=== PATIENT | female | born 1985 | race Hispanic/Latino ===

== ENCOUNTER 2017-04-26 18:58 | Emergency (ER) | payer OTHER ==
[2017-04-26 19:08] VITALS: BP 139/80; PULSE 118; RESP 16; TEMP 97.6; O2SAT 99
[2017-04-26] MEDS ORDERED: Lidocaine 1% Inj (20ml) IJ STA (19:10)
[2017-04-26] MEDS ORDERED: Cellulose Hemostat 2X3 Sheet TP ONE (19:15)
[2017-04-26] MEDS ORDERED: Lidocaine 1% Inj (20ml) ONE (19:32)
--- NOTE | 2017-04-26 19:37 | ED PDOC ---
Upper Extremity Pain/Injury Time Seen by Provider: 04/26/17 19:10 Chief Complaint (Nursing): Abnormal Skin Integrity Chief Complaint (Provider): Left index finger laceration History/Exam Limitations: no limitations Onset/Duration Of Symptoms: Mins Current Symptoms Are (Timing): Still Present Additional Complaint(s): Patient is a 31 y/o female who presents to the ED for skin avulsion on her left index finger due to injury. Patient reports she sustained the injury while cutting butter just prior to arrival. She reports numbness to the region of avulsed skin, but denies any numbness, weakness, or limited range of motion to other fingers. Patient states her tetanus vaccination is up to date. Past Medical History Reviewed: Historical Data, Nursing Documentation, Vital Signs Vital Signs: Last Vital Signs Temp 97.6 F 04/26/17 19:06 Pulse 118 H 04/26/17 19:06 Resp 16 04/26/17 19:06 BP 139/80 04/26/17 19:06 Pulse Ox 99 04/26/17 19:06 - Medical History PMH: No Chronic Diseases - Surgical History Other surgeries: Ganglion cyst removal, left hand - Family History Family History: States: No Known Family Hx - Social History Current smoker - smoking cessation education provided: Yes (2 cigarettes daily) Alcohol: Social (vodka) - Home Medications Home Medications: Ambulatory Orders Medication Instructions Recorded Cephalexin [cephalexin] 500 mg PO BID #20 cap 04/26/17 - Allergies Allergies/Adverse Reactions: Allergies Allergy/AdvReac Type Severity Reaction Status Date / Time No Known Allergies Allergy Verified 04/26/17 19:06 Review of Systems Skin: Positive for: Other (Skin avulsion to index finger of left hand) Neurological: Negative for: Weakness, Numbness Physical Exam - Reviewed Nursing Documentation Reviewed: Yes Vital Signs Reviewed: Yes - Physical Exam Appears: Positive for: No Acute Distress Head Exam: Positive for: ATRAUMATIC Extremity: Positive for: Other (Left index finger skin avulsion: 1 inch, partial nail bed involvement, acrylic nail very minimal bleeding . FROM of digit. ) Neurologic/Psych: Positive for: Alert - ECG O2 Sat by Pulse Oximetry: 99 (RA) Pulse Ox Interpretation: Normal Medical Decision Making Medical Decision Makin:10 Initial Plan: --Lidocaine 1% 10 ml IJ --Cellulose Hemostat 1 she TP 19:35 3 CCs of lidocaine given without epi good wound pressure applied, no active bleeding, telfa dressing applies advised not to wet wound for at least 2-3days and not to remove surgicel for a couple of days with f/u with pmd. Scribe Attestation: Documented by Bob Carlos, acting as a scribe for Asia Pulido PA-C Provider Scribe Attestation: All medical record entries made by the Scribe were at my direction and personally dictated by me. I have reviewed the chart and agree that the record accurately reflects my personal performance of the history, physical exam, medical decision making, and the department course for this patient. I have also personally directed, reviewed, and agree with the discharge instructions and disposition. Disposition - Clinical Impression Clinical Impression: Avulsion, skin - Patient ED Disposition Is Patient to be Admitted: No Counseled Patient/Family Regarding: Studies Performed, Diagnosis, Need For Followup, Rx Given - Disposition Disposition: Routine/Home Disposition Time: 13:27 Condition: STABLE Prescriptions: Cephalexin [cephalexin] 500 mg PO BID #20 cap Instructions: Skin Avulsion (ED) Forms: [employer] ([place]olan)
== END 2017-04-26 20:05 | disposition home or self-care (01) ==
LOC: H.ER 18:58
DX: S61.221A Laceration with foreign body of left index finger without damage to nail, initial encounter (principal); W26.0XXA Contact with knife, initial encounter; Y92.89 Other specified places as the place of occurrence of the external cause